=== PATIENT | female | born 1935 | race Caucasian/White ===

== ENCOUNTER → 2016-09-24 | Outpatient (CLI) | payer MEDICARE, BC | END | disposition short-term general hospital (02) | LOC: CLNEUR 10:22 | DX: R41.3 Other amnesia (principal); E66.9 Obesity, unspecified; M48.00 Spinal stenosis, site unspecified ==

== ENCOUNTER → 2016-10-02 | Outpatient (CLI) | payer MEDICARE, BC | END | disposition short-term general hospital (02) | LOC: CLVASC 12:51 | DX: I77.1 Stricture of artery (principal); R60.9 Edema, unspecified; I73.9 Peripheral vascular disease, unspecified; N18.9 Chronic kidney disease, unspecified ==

== ENCOUNTER → 2016-11-17 | Outpatient (CLI) | payer MEDICARE, BC | END | disposition short-term general hospital (02) | LOC: CLCARD 09:36 | DX: I31.3 Pericardial effusion (noninflammatory) (principal); R53.83 Other fatigue; I10 Essential (primary) hypertension; E78.5 Hyperlipidemia, unspecified; E11.9 Type 2 diabetes mellitus without complications; Z98.890 Other specified postprocedural states ==

== ENCOUNTER → 2016-12-02 | Outpatient (CLI) | payer MEDICARE, BC | END | disposition short-term general hospital (02) | LOC: CLPHYS 10:06 | DX: G62.9 Polyneuropathy, unspecified (principal); G56.21 Lesion of ulnar nerve, right upper limb; M54.16 Radiculopathy, lumbar region ==